=== PATIENT | male | born 1985 | race Caucasian/White ===

== ENCOUNTER 2019-12-22 20:02 | Emergency (ER) | payer BC ==
[2019-12-22 20:13] VITALS: RESP 20; TEMP 98.2
[2019-12-22] MEDS ORDERED: LIDOCAINE 5% PATCH TOPICAL STA (20:39)
[2019-12-22] MEDS ORDERED: CYCLOBENZAPRINE 10MG STARTER 3 TAB BTL PO STA (20:40)
[2019-12-22] MEDS ORDERED: KETOROLAC 30 MG/ML 1 ML VIAL IM STA (20:40)
--- NOTE | 2019-12-22 20:42 | ED ---
Back Pain HPI - General Chief Complaint: Back Pain/Injury Stated Complaint: back pain Time Seen by Provider: 12/22/19 20:16 Source: patient Limitations: no limitations - History of Present Illness Initial Comments: Patient 34-year-old male presenting to emergency Department with a chief complaint of back pain. States symptoms began after he was bending over to worm picker a large object. States the pain is sharp and more on the left thoracic region. States pain is exacerbated with palpation at the site of tenderness and right rotation. States that he felt a "pop" before the sudden onset of pain. Denies taking any medication to alleviate the symptoms. Denies any chest pain shortness of breath nausea vomiting abdominal pain or low back pain. No saddle anesthesia, urinary bowel incontinence. Denies radiation of the pain. Denies focal no deficits. - Related Data Previous Rx's Medication Instructions Recorded Cyclobenzaprine [Flexeril] 10 mg PO TID PRN #15 tab 12/22/19 Allergies Allergy/AdvReac Type Severity Reaction Status Date / Time No Known Allergies Allergy Verified 12/22/19 20:13 Review of Systems ROS Statement: Those systems with pertinent positive or pertinent negative responses have been documented in the HPI. ROS Other: All systems not noted in ROS Statement are negative. Past Medical History Past Medical History: No Reported History History of Any Multi-Drug Resistant Organisms: None Reported Past Surgical History: Orthopedic Surgery Additional Past Surgical History / Comment(s): finger Past Psychological History: No Psychological Hx Reported Smoking Status: Current every day smoker Past Alcohol Use History: Rare Past Drug Use History: None Reported General Exam Limitations: no limitations General appearance: alert, in no apparent distress Head exam: Present: atraumatic, normocephalic, normal inspection Eye exam: Present: normal appearance Pupils: Present: normal accommodation ENT exam: Present: normal exam Neck exam: Present: normal inspection, full ROM. Absent: tenderness Respiratory exam: Present: normal lung sounds bilaterally Cardiovascular Exam: Present: regular rate, normal rhythm, normal heart sounds Extremities exam: Present: normal inspection, full ROM Back exam: Present: normal inspection, full ROM, tenderness (Tenderness in the left paraspinal region of the thoracic spine.), muscle spasm, paraspinal tenderness Neurological exam: Present: alert, oriented X3 Psychiatric exam: Present: normal affect, normal mood Skin exam: Present: warm, dry, intact, normal color Course Vital Signs 12/22/19 20:11 Temperature 98.2 F Pulse Rate 89 Respiratory 20 Rate Blood Pressure 133/76 O2 Sat by Pulse 99 Oximetry Medical Decision Making - Medical Decision Making Patient is a 34-year-old male presenting to emergency Department with a chief complaint of back pain. Sudden onset of pain in the left paraspinal thoracic region after he was bending to worm picker an object. [place] sudden pop. X-ray is unremarkable. On exam patient does have tenderness in the region along with continuous muscle spasms. Patient was given Toradol, Flexeril, Lidoderm patch. On reevaluation patient continues to have spasms in the back. Patient was given 4 mg of Valium and morphine. Patient continues to have spasms. Patient appears to have developed some slight muscular swelling on the region of the scapula. He is tender in the region as well. Patient was given 1 mg of Dilaudid. On reevaluation patient reports there is some improvement in the symptoms. Patient will be discharged with a Flexeril starter pack, Tylenol 3 starter pack and a prescription for Flexeril. He shouldn't drive not on the medication. Strict return parameters were thoroughly discussed the patient was understanding and agreeable. He was advised to follow-up with orthopedics if symptoms not improved. Case discussed with physician. Disposition Clinical Impression: Strain of thoracic back region, Thoracic back pain Disposition: HOME SELF-CARE Condition: Stable Instructions (If sedation given, give patient instructions): Acute Low Back Pain (ED) Additional Instructions: Take prescribed medication as directed. Do not drive or operate heavy machinery when taking the medication. Return to emergency department if symptoms worsen. Follow-up with prevention specialist. Prescriptions: Cyclobenzaprine [Flexeril] 10 mg PO TID PRN #15 tab PRN Reason: Muscle Spasm Is patient prescribed a controlled substance at d/c from ED?: No Referrals: Maryellen Multani MD [Primary Care Provider] - 1-2 days Raulito Vazquez PAC [[facility] [employer]] - 1-2 days Time of Disposition: 20:42
--- NOTE | 2019-12-22 21:08 | XR ---
EXAMINATION TYPE: XR thoracic spine 2V DATE OF EXAM: 12/22/2019 COMPARISON: NONE HISTORY: Back pain TECHNIQUE: 3 views FINDINGS: Vertebra have fairly normal spacing and alignment. Posterior elements are intact. I see no compression fracture. There is no paraspinal mass. IMPRESSION: Negative thoracic spine exam.
[2019-12-22] MEDS ORDERED: DIAZEPAM 5 MG/ML 2 ML INJ IVP STA (21:25)
[2019-12-22] MEDS ORDERED: DIAZEPAM 5 MG/ML 2 ML INJ IM ONE (21:27)
[2019-12-22] MEDS ORDERED: MORPHINE SULFATE 4 MG/ML SYRINGE IM STA (22:00)
[2019-12-22] MEDS ORDERED: HYDROmorphone 1 MG/ML 1 ML SYRINGE IM STA (22:47)
[2019-12-22] MEDS ORDERED: ACET/COD 300 MG/30 MG STARTER PACK 6 TAB BTL PO STA (23:14)
[2019-12-22] MEDS ORDERED: ONDANSETRON 4 MG ODT STARTER PACK 2 TAB BTL PO STA (23:20)
[2019-12-22 23:30] VITALS: BP 130/78; PULSE 90
== END 2019-12-22 23:29 | disposition home or self-care (01) ==
LOC: EC 20:02
DX: S29.012A Strain of muscle and tendon of back wall of thorax, initial encounter (principal); F17.200 Nicotine dependence, unspecified, uncomplicated; X50.9XXA Other and unspecified overexertion or strenuous movements or postures, initial encounter
CPT/HCPCS: 72070; 99283; 96372 ×4; J2270; J3360; J1885; J1170; S0119